=== PATIENT | male | born 1955 ===

== ENCOUNTER 2021-01-14 09:00 | Day surgery (SDC) | payer OTHER | END 2021-01-14 13:50 | disposition home or self-care (01) | LOC: AMB-ENDOS 09:00 | PROVIDERS: ATTEND Colon & Rectal Surgery | DX: D12.7 Benign neoplasm of rectosigmoid junction (principal); K64.1 Second degree hemorrhoids; Z20.822 Contact with and (suspected) exposure to COVID-19 ==